=== PATIENT | male | born 1980 | race Caucasian/White ===

== ENCOUNTER → 2017-05-25 | Outpatient (CLI) | payer OTHER ==
--- NOTE | 2017-05-25 20:34 | Diagnostic Imaging Report ---
Left breast diagnostic mammogram with tomography evaluation. Right MLO view is also obtained for comparison. The current study was also evaluated with a Computer Aided Detection (CAD) system. INDICATION: Left breast lump. FINDINGS: In the retroareolar region, there is a 3 cm focal asymmetry with appearance suggestive of gynecomastia. Minimal similar change is seen of the right side. There is no suspicious calcification seen. IMPRESSION: Retroareolar focal asymmetry in the left breast is favored to be related to gynecomastia. Ultrasound evaluation pending. ACR BI-RADS Category 0: Incomplete. (Needs additional imaging evaluation). Result letter will be mailed to the patient. Note: At least 10% of breast cancer is not imaged by mammography. Dictated by: Dictated on workstation # [id number]
--- NOTE | 2017-05-25 20:45 | Diagnostic Imaging Report ---
EXAMINATION: Left breast ultrasound. INDICATION: Retroareolar lump. FINDINGS: There is a left retroareolar hypoechoic lesion measuring 3.2 x 0.9 x 3.2 cm. Retroareolar region on the right side is also seen for comparison measuring 1.8 x 0.4 x 1.3 cm significant smaller compared to the prior study. IMPRESSION: Findings are suggestive of bilateral gynecomastia, more prominent on the left side. Followup mammogram and ultrasound in four months could be obtained to ensure no adverse development. ACR BI-RADS Category 3: Probably benign findings. Dictated by: Dictated on workstation # [id number]
== END ==
LOC: EDBD 12:50 → RAD 12:50
PROVIDERS: ATTEND Nurse Practitioner Family
DX: N63.42 Unspecified lump in left breast, subareolar (principal)
CPT/HCPCS: 76642